=== PATIENT | female | born 1940 | race Caucasian/White ===

== ENCOUNTER 2019-06-14 12:21 | Outpatient (CLI) | payer MEDICARE, BC ==
[~2019-06-14 12:21] MED LIST: ALBU18HF INH; AZEL137S4 NAS; CARV25TA12 PO; CARV3.122 PO; FURO20TA3 PO; GLYB5TAB3 PO; LEVO50TA5 PO; METF500T27 PO; REGADENOSON 0.4 MG/5 ML SYRINGE ONE; RIVA10TA2 PO; RIVA15TA PO; SIMV20TA3 PO; VALS80TA30 PO
== END 2019-06-14 23:59 | disposition home or self-care (01) ==
LOC: CFH 12:21
PROVIDERS: ATTEND Internal Medicine Cardiovascular Disease
DX: I48.0 Paroxysmal atrial fibrillation (principal)
CPT/HCPCS: 78452; 93017; A9502; J2785